=== PATIENT | female | born 1970 | race Caucasian/White ===

== ENCOUNTER 2018-10-10 09:01 | Emergency (ER) | payer SELFPAY ==
[~2018-10-10] VITALS: Ht 160 cm; Wt 59.1 kg
[2018-10-10] MEDS ORDERED: MECLIZINE CHEWABLE 25 MG TAB ONE (09:40)
[2018-10-10 09:55] LABS: BASOPHILS # (AUTO) 0.05 x10^3/uL (0-0.1); BASOPHILS % (AUTO) 1 % (0-1); EOSINOPHILS # (AUTO) 0.12 x10^3/uL (0-0.4); EOSINOPHILS % (AUTO) 2 % (1-7); LYMPHOCYTES # (AUTO) 1.85 x10^3/uL (1-3.4); LYMPHOCYTES % (AUTO) 25 % (22-44); MD NO; MEAN CORPUSCULAR HEMOGLOBIN 28.4 pg (27.0-34.8); MEAN CORPUSCULAR HGB CONC 33.6 g/dL (32.4-35.8); MEAN CORPUSCULAR VOLUME 84.7 fL (80-100); MEAN PLATELET VOLUME 12.8 fL (7.4-10.4); MONOCYTES # (AUTO) 0.41 x10^3/uL (0.2-0.8); MONOCYTES % (AUTO) 6 % (2-9); NEUTROPHILS # (AUTO) 4.88 x10^3/uL (1.8-6.8); NEUTROPHILS % (AUTO) 67 % (42-75); PLATELET COUNT 155 x10^3/uL (130-400); RED BLOOD COUNT 5.52 x10^6/uL (3.82-5.3); RED CELL DISTRIBUTION WIDTH 14.5 % (9.6-15.2)
[2018-10-10] MEDS ORDERED: MECLIZINE CHEWABLE 25 MG TAB PO ONE (10:00)
[2018-10-10 10:03] LABS: ALANINE AMINOTRANSFERASE 20 U/L (12-78); ALBUMIN 4.2 g/dL (3.4-5.0); ANION GAP 6 mmol/L (5-15); CALCIUM 8.4 mg/dL (8.5-10.1); CHLORIDE 111 mmol/L (98-107); CREATININE 0.89 mg/dL (0.55-1.02)
[2018-10-10 10:07] LABS: ALKALINE PHOSPHATASE 107 U/L (45-117); BILIRUBIN,TOTAL 0.6 mg/dL (0.2-1.0); TOTAL PROTEIN 6.9 g/dL (6.4-8.2); TROPONIN I < 0.015 ng/mL (0.000-0.045)
[2018-10-10 10:26] LABS: MICROSCOPIC AUTO
[2018-10-10 10:29] LABS: CULTURE INDICATED? YES
[2018-10-10] MEDS ORDERED: SODIUM CHLORIDE FLUSH 10ML SYR IVF ONE (11:00)
[2018-10-10 11:52] VITALS: BP 140/70
== END 2018-10-10 12:54 | disposition home or self-care (01) ==
LOC: ED 12:48
DX: R42 Dizziness and giddiness (principal); R20.2 Paresthesia of skin; F41.1 Generalized anxiety disorder; Z98.51 Tubal ligation status; Z87.42 Personal history of other diseases of the female genital tract
CPT/HCPCS: 36415; 70551; 80053; 81001; 84484; 85025; 87086; 93005; 99284

== ENCOUNTER 2019-06-09 07:32 | Emergency (ER) | payer SELFPAY ==
[~2019-06-09] VITALS: Ht 160 cm; Wt 60.0 kg
[2019-06-09 07:35] VITALS: BP 161/87
--- NOTE | 2019-06-09 07:55 | NUR ---
PT HAS CO OF WEAKNESS, "TALKING BACKWARDS", UNSTEADY GATE. PT STATES SYMPTOMS STARTED EARLY THIS AM. STATES THERE IS A HX OF UNDIAGNOSED LUPUS. PT INTERFACE ENGINEER EQUAL AND STRONG. NO DRIFT IN UPPER EXTREMITES. SMILE EQUAL. WAITING FOR MD ORDERS. CARROT HARVESTER APPLIED
[2019-06-09 08:20] LABS: BASOPHILS # (AUTO) 0.05 x10^3/uL (0-0.1); BASOPHILS % (AUTO) 0 % (0-1); EOSINOPHILS # (AUTO) 0.08 x10^3/uL (0-0.4); EOSINOPHILS % (AUTO) 1 % (1-7); LYMPHOCYTES # (AUTO) 1.89 x10^3/uL (1-3.4); LYMPHOCYTES % (AUTO) 17 % (22-44); MD NO; MEAN CORPUSCULAR HEMOGLOBIN 28.2 pg (27.0-34.8); MEAN CORPUSCULAR HGB CONC 33.1 g/dL (32.4-35.8); MEAN CORPUSCULAR VOLUME 85.1 fL (80-100); MEAN PLATELET VOLUME 11.9 fL (7.4-10.4); MONOCYTES # (AUTO) 0.61 x10^3/uL (0.2-0.8); MONOCYTES % (AUTO) 5 % (2-9); NEUTROPHILS # (AUTO) 8.72 x10^3/uL (1.8-6.8); NEUTROPHILS % (AUTO) 77 % (42-75); PLATELET COUNT 177 x10^3/uL (130-400); RED BLOOD COUNT 5.73 x10^6/uL (3.82-5.3)
[2019-06-09 08:29] LABS: ALBUMIN 4.5 g/dL (3.4-5.0); ANION GAP 7 mmol/L (5-15); CALCIUM 9.3 mg/dL (8.5-10.1); CHLORIDE 112 mmol/L (98-107); CREATININE 0.89 mg/dL (0.55-1.02)
[2019-06-09 08:53] LABS: CULTURE INDICATED? YES; MICROSCOPIC AUTO
--- NOTE | 2019-06-09 09:39 | NUR ---
Patient/Caregiver given discharge instructions and they have confirmed that they understand the instructions. Patient ambulatory with steady gait.
== END 2019-06-09 09:41 | disposition home or self-care (01) ==
LOC: ED 09:04
DX: N30.00 Acute cystitis without hematuria (principal); F41.1 Generalized anxiety disorder; H53.9 Unspecified visual disturbance; M19.90 Unspecified osteoarthritis, unspecified site; F17.210 Nicotine dependence, cigarettes, uncomplicated; Z98.51 Tubal ligation status
CPT/HCPCS: 36415; 70450; 80048; 81001; 82040; 84439; 84443; 85025; 87077; 87086; 87186; 93005; 99284